=== PATIENT | female | born 2000 | race Caucasian/White ===

== ENCOUNTER 2019-02-12 06:30 | Inpatient (IN) ==
[~2019-02-12 06:30] MED LIST: D5 1/2 NS 1000 ML 1,000 ML ONE; D5 1/2 NS 1L W PITOCIN 20 UNITS/L 20 UNITS/1,000 ML BAG IV ONE; D5LR 1L W PITOCIN 10 UNITS/L 10 UNITS/1,000 ML BAG IV ONE; FENTANYL INJ 100 mcg ONE; LR 1000 ML IV 1,000 ML ONE; NAROPIN EPIDURAL 0.2% + FENTANYL 90MCG 60 ML EPI ONE; PITOCIN ONE; XYLOCAINE-MPF 1% ONE
[2019-02-12] MEDS ORDERED: REGLAN INJ 10 MG VIAL IVP PRN (06:40)
[2019-02-12] MEDS ORDERED: PITOCIN IVP ONE (06:40)
[2019-02-12] MEDS ORDERED: PHENERGAN INJ 25 MG IM PRN ×2 (06:40→14:51)
[2019-02-12] MEDS ORDERED: D5LR 1L W PITOCIN 10 UNITS/L 10 UNITS/1,000 ML BAG IV PRN (06:40)
[2019-02-12] MEDS ORDERED: MORPHINE SULFATE INJ 2 MG INJ IVP PRN (06:40)
[2019-02-12] MEDS: D5 1/2 NS 1000 ML 1,000 ML IV SCH ×2 (06:50→16:23)
--- NOTE | 2019-02-12 07:06 | DR.OB ---
OB Quick Note - Assessment/Plan Assessment/Plan: L&D 02/12/19 at 6:55am S-No complaint. O-Afebrile,VSS ELI=839 with good LTV, +accel, no decel. CTX=none CVX=1cm/50%/-1/VTX AROM with clear fluid. IUPC and FSE placed. A-IUP at 38 6/7 weeks for induction Polyhydramnios P-Begin pitocin induction Anticipate
[2019-02-12] MEDS ORDERED: NUBAIN INJ 10 ONE ×2 (08:55→10:59)
[2019-02-12] MEDS: NUBAIN INJ 200 MG VIAL MULTIDOSE IVP PRN ×2 (09:00→11:00)
[2019-02-12] MEDS ORDERED: MORPHINE SULFATE INJ 2 MG INJ ONE (10:07)
--- NOTE | 2019-02-12 11:47 | DR.OB ---
OB Quick Note - Assessment/Plan Assessment/Plan: L&D 02/12/19 at 11:40am Pitocin=16mu/min. S-No complaint except pain with CTX. O-Afebrile,VSS JAV=550 with good LTV, +accel, no decel. CTX=q 1 1/2 to 2 min., about 45-55mmHg CVX=3cm/75%/-1/VTX A-IUP at 38 6/7 weeks for induction Polyhydramnios P-Cont. pitocin induction Anticipate
[2019-02-12] MEDS ORDERED: XYLOCAINE 2% and EPINEPHRINE 1:100,000 ONE (11:48)
[2019-02-12] MEDS ORDERED: XYLOCAINE 1 % (PLAIN) ONE (12:14)
[2019-02-12] MEDS: D5 1/2 NS 1000 ML 1,000 ML with PITOCIN 20 UNITS IV SCH ×2 (15:00)
[2019-02-12] MEDS ORDERED: AMBIEN PO PRN (16:02)
[2019-02-12] MEDS ORDERED: ADACEL or BOOSTRIX TDaP VACCINE IM ONE ×2 (16:02→18:05)
[2019-02-12] MEDS ORDERED: DERMOPLAST SPRAY TOP PRN (16:02)
[2019-02-12] MEDS ORDERED: MILK OF MAGNESIA PO PRN (16:02)
--- NOTE | 2019-02-12 16:10 | DR.OB ---
OB Quick Note - Assessment/Plan Assessment/Plan: Delivery Note [employer] 02/12/19 at 14:39 Patient complete and pushing. Head delivered over intact perineum. No nuchal cord. Nose and mouth bulb suctioned. Body delivered over intact perineum. Cord clamped x 2 and cut. handed to attendant. Cord sent for gases. Placenta delivered spontaneously / intact / 3 vessel cord. No CVX / vaginal / perineal tears noted. Viable male infant, VTX/OA, wt=6'1" and 8/9, stable to NBN. Mother stable to RR. ZYA=581 cc.
[2019-02-12] MEDS: MOTRIN TAB 800 MG PO PRN (19:34)
[2019-02-12] MEDS: ZANTAC PO SCH (21:37)
[2019-02-13] MEDS: D5 1/2 NS 1000 ML 1,000 ML with PITOCIN 20 UNITS IV SCH ×4 (00:33→08:05)
[2019-02-13 05:33] LABS: HEMATOCRIT 29.5 % (36.0-47.0)
[2019-02-13] MEDS: ZANTAC PO SCH ×2 (08:06→20:50)
[2019-02-13] MEDS: PRENATAL PLUS PO SCH (08:06)
[2019-02-13] MEDS: MOTRIN TAB 800 MG PO PRN (20:50)
[2019-02-14] MEDS ORDERED: DEPO-PROVERA CONTRACEPTIVE INJ IM ONE ×2 (07:59→10:24)
[2019-02-14] MEDS: ZANTAC PO SCH (10:12)
[2019-02-14] MEDS: PRENATAL PLUS PO SCH (11:43)
[2019-02-14 12:16] VITALS: BP 117/71
== END 2019-02-14 12:55 | disposition home or self-care (01) | DRG 807 ==
LOC: LD 06:30 → MED/SURG 15:43
PROVIDERS: ADMIT Specialist; ATTEND Specialist
DX: Z37.0 Single live birth; Z01.818 Encounter for other preprocedural examination; Z3A.38 38 weeks gestation of pregnancy; Z23 Encounter for immunization; O40.3XX0 Polyhydramnios, third trimester, not applicable or unspecified
CPT/HCPCS: 36415; 59409; 80048; 80307; 81001; 85014; 85018; 85025; 86592; 86850; 86900; 86901; 90715; A4216; A4222; S0197; G0434; J1050; J2001; J2270; J2300; J2590; J3010; J7120; S5010